=== PATIENT | male | born 1970 | race Caucasian/White ===

== ENCOUNTER → 2020-07-30 02:42 | Outpatient (CLI) | payer BC, SELFPAY ==
[2020-07-30 23:31] LABS: SARS-CoV-2 RNA PCR Negative
== END ==
PROVIDERS: PCP Internal Medicine; Visit Provider Internal Medicine Gastroenterology
DX: Z01.812 Encounter for preprocedural laboratory examination (principal); Z20.822 Contact with and (suspected) exposure to COVID-19
CPT/HCPCS: C9803; U0003; U0005

== ENCOUNTER 2020-08-01 12:18 | Outpatient (CLI) | payer BC, SELFPAY ==
--- NOTE | ~2020-08-01 | US_ITS ---
US abdomen complete EXAMINATION: US Abdomen Complete INDICATION: Hepatomegaly PROCEDURE: Realtime High Resolution abdomen ultrasound. COMPARISON: 11/08/2017 FINDINGS: Gallbladder within normal limits. No gallstones, pericholecystic fluid, gallbladder wall t hickening or biliary dilatation. Common bile duct measures 3.6 mm. Liver echotexture is increased, consistent with fatty infiltration. There is hepatomegaly. Pancreas within normal limits. Pancreatic tail is obscured by bowel gas. Spleen is unremarkeable. Renal echo texture is within normal limits bilaterally without hydronephrosis, contour deforming mass or renal s tone. Right kidney measures 9.8 cm. Left kidney measures 11.8 cm. Visualized aspects of the aorta and IVC are within normal limits. Portal vein is patent. No sonograph ic Diaz's sign indicated by the technologist. IMPRESSION: 1: Hepatomegaly with fatty infiltration of the liver. Reviewed, dictated and finalized at location B.
== END 2020-08-01 12:19 | disposition home or self-care (01) ==
LOC: ANHIMG 12:19
PROVIDERS: PCP Internal Medicine; Visit Provider Internal Medicine Gastroenterology
DX: R16.0 Hepatomegaly, not elsewhere classified (principal); R10.13 Epigastric pain
CPT/HCPCS: 76700

== ENCOUNTER 2020-08-02 01:09 | Day surgery (SDC) | payer BC, SELFPAY ==
[2020-07-24 16:05] VITALS: BMI 36.0
[2020-08-02 08:21] VITALS: BP 131/95; PULSE 120; RESP 18; TEMP 36.6; O2SAT 100; BMI 35.4
--- NOTE | 2020-08-02 09:09 | P.PNAN_ITS ---
Anes - Initial Pre Proc Eval Procedure: Operation Date: 08/02/20 09:30 Proposed Procedures p Esophagogastroduodenoscopy - Dagoberto Andres MD Date/Time: 08/02/20 09:09 Surgeon: Dagoberto Andres MD Pre Op Diagnosis: taveras's esophagus Patient Data Age: 49 Gender: M Height: 6 ft 1 in Weight: 122 kg Last Vital Signs Temp 97.8 F 08/02/20 08:21 Pulse 120 H 08/02/20 08:21 Resp 18 08/02/20 08:21 BP 131/95 H 08/02/20 08:21 Pulse Ox 100 08/02/20 08:21 Allergies Allergy/AdvReac Type Severity Reaction Status Date / Time No Known Allergies Allergy Verified 08/02/20 08:20 Home Medications Medication Instructions Recorded Confirmed Type omeprazole 40 mg capsule,delayed 40 mg PO DAILY 07/16/20 07/24/20 History release rizatriptan 10 mg tablet 10 mg PO ONCE 07/16/20 08/02/20 History calcium citrate-vitamin D3 1 tablet PO DAILY 07/24/20 07/24/20 History hbbxbcjg-sxo-xruxm-vit K-lycop 1 tablet PO DAILY 07/24/20 07/24/20 History [Men's Multivitamin] Patient hx anesthesia problems: none Family hx anesthesia problems: none [facility] Past Medical History Medical History (Updated 08/02/20 @ 09:10 by Kerwin Burden MD) Arthritis Migraine Social History Social History Years smoked: 20 Smoking status: Current every day smoker Alcohol use details: socially Living arrangements: with family Spiritual care concerns: No Anes - Eval Final PreProcedure Day of Procedure 08/02/20 09:09 Patient weight: obese Heart: regular rate and rhythm Lungs: clear to auscultation Airway: Mallampati scale class II Neurological: alert and oriented Last oral intake: >/= 8 hours ASA classification: III Emergent: no Anesthetic plan: proceed Anesthesia type and monitoring: general GIVS and standard monitoring Informed Consent: The patient's anesthetic plan and its attendant risks and benefits were discussed with the patient/family/POA. Questions were solicited and answers provided to the satisfaction of the patient/family/POA.
--- NOTE | 2020-08-02 09:09 | PM.HPGS ---
History of Present Illness History of Present Illness Consent: Risks, benefits, and alternatives have been discussed and questions answered. Patient agrees to proceed with procedure. Chief complaint: taveras's esophagus Narrative: Serafin Jacobsen II is a 49 year old male with a history of Taveras's esophagus. Review of Systems Review of Systems: All systems reviewed & are unremarkable except as noted in HPI and below PMFSH Social History Social History Years smoked: 20 Smoking status: Current every day smoker Alcohol use details: socially Living arrangements: with family Spiritual care concerns: No Meds Home Medications and Allergies Home Medications Medication Instructions Recorded Confirmed Type omeprazole 40 mg capsule,delayed 40 mg PO DAILY 07/16/20 07/24/20 History release rizatriptan 10 mg tablet 10 mg PO ONCE 07/16/20 08/02/20 History calcium citrate-vitamin D3 1 tablet PO DAILY 07/24/20 07/24/20 History buwezbgb-opi-eguns-vit K-lycop 1 tablet PO DAILY 07/24/20 07/24/20 History [Men's Multivitamin] Allergies Allergy/AdvReac Type Severity Reaction Status Date / Time No Known Allergies Allergy Verified 08/02/20 08:20 Vital Signs Vital Signs - 24 hr 08/02/20 08:21 Temperature 36.6 C Pulse Rate 120 H Respiratory Rate 18 Blood Pressure 131/95 H Pulse Oximetry 100 Exam Const: General: alert Orientation/consciousness: patient oriented x3 Resp: Auscultation: clear to auscultation bilaterally Cardio: Rhythm: regular rhythm GI: GI Palp: Yes Soft to palpation and No Tenderness to palpation present (GI) Neuro: General: patient oriented x3 Assessment and Plan Assessment and plan (1) Taveras's esophagus: Code(s): K22.70 - Taveras's esophagus without dysplasia Status: Acute Assessment and Plan: EGD with possible biopsy or dilatation or cautery.
[2020-08-02] MEDS: LACTATED RINGERS 1,000 ML 150 ML IV CONT (09:21)
[2020-08-02 09:34] VITALS: BP 117/81; PULSE 98; RESP 27; O2SAT 98
[2020-08-02 09:44] VITALS: BP 118/80; PULSE 100; RESP 26; O2SAT 99
[2020-08-02 09:54] VITALS: BP 120/82; PULSE 95; RESP 25; O2SAT 100
== END 2020-08-02 10:08 | disposition home or self-care (01) ==
PROVIDERS: PCP Internal Medicine; Visit Provider Internal Medicine Gastroenterology
PROC: 0DJ08ZZ Inspection of Upper Intestinal Tract, Via Natural or Artificial Opening Endoscopic (ICD-10-PCS; CPT 43235; principal; 2020-08-02 09:30)
DX: Z09 Encounter for follow-up examination after completed treatment for conditions other than malignant neoplasm (principal); K22.70 Barrett's esophagus without dysplasia; F17.210 Nicotine dependence, cigarettes, uncomplicated; E66.9 Obesity, unspecified; Z68.35 Body mass index [BMI] 35.0-35.9, adult
CPT/HCPCS: 43239; 88305; J2704; J7120

== ENCOUNTER → 2022-11-16 09:14 | Outpatient (CLI) | payer BC, SELFPAY ==
--- NOTE | ~2022-11-16 | US_ITS ---
US right upper quadrant INDICATION: Alcoholic cirrhosis. Diabetes. Hypertension. PROCEDURE: Realtime right upper abdominal ultrasound. COMPARISON: No prior studies for comparison. FINDINGS: The pancreas is normal without focal mass or pancreatic ductal dilation. Liver echotexture is increased, consistent with fatty infiltration. There is hepatomegaly. There is normal directiona l flow in the portal vein. The gallbladder is normal without stones, gallbladder wall thickening or pericholecystic fluid. Comm on bile duct measures 4 mm. No sonographic Diaz's sign. IMPRESSION: 1: Hepatomegaly with fatty infiltration of the liver. Reviewed, dictated and finalized at location B.
== END ==
PROVIDERS: PCP Internal Medicine; Visit Provider Internal Medicine
DX: R73.03 Prediabetes (principal); I10 Essential (primary) hypertension; K70.30 Alcoholic cirrhosis of liver without ascites
CPT/HCPCS: 76705

== ENCOUNTER → 2023-04-19 09:37 | Outpatient (CLI) | payer BC, SELFPAY ==
--- NOTE | ~2023-04-19 | CT_ITS ---
CT Scan of the Chest without Contrast: Clinical Indication: Lung cancer screening, tobacco dependence Technique: Contiguous sections were acquired throughout the chest without intravenous contrast. Dose reduction technique was used on this scan by utilizing automated exposure control and iterative recon struction technique. The dose-length product (DLP) was 292.84 mGy-cm. Findings: There is no evidence of any significant mediastinal, hilar or axillary lymphadenopathy. The mediastin al soft tissues appear normal. There is no evidence of pleural or pericardial effusion. The lungs are clear. No pulmonary nodules or infiltrates are noted. Images through the upper abdomen reveal no abnormalities. Impression: Lung RADS 1: Negative. 12 month follow-up screening CT advised. Reviewed, dictated and finalized at location . ITAL RECEPTIONIST Impression: Lung RADS 1: Negative. 12 month follow-up screening CT advised.
== END ==
DX: Z12.2 Encounter for screening for malignant neoplasm of respiratory organs (principal); Z87.891 Personal history of nicotine dependence
CPT/HCPCS: 71271

== ENCOUNTER 2024-03-13 08:51 | Outpatient (CLI) | payer BC, SELFPAY ==
--- NOTE | ~2024-03-13 | US_ITS ---
EXAMINATION: US right upper quadrant DATE: 03/13/2024 09:41 INDICATION: Alcoholic cirrhosis of liver. TECHNIQUE: Multiple grayscale and Doppler ultrasound images of the abdomen were obtained. COMPARISON: Ultrasound 11/16/2022, chest CT 04/19/2023 FINDINGS: The visualized portions of the head and body of the pancreas are normal. The liver is raman l without focal lesion. No liver surface nodularity. There is normal flow in main portal vein. The ga llbladder is normal in size. No gallstones or gallbladder wall thickening. There is no sonographic Mu rphy's sign. The common duct is normal and measures 3 mm. Right kidney is normal. IMPRESSION: 1. Normal liver. Reviewed, dictated and finalized at location B. CING SUPERVISOR IMPRESSION: 1. Normal liver.
--- OUTSIDE RECORDS SUMMARY | 2024-03-16 12:01 | XMS_ITS | Clinical Summary ---
Author Organization [facility] Address [address] [place] [address] Care Team Providers Care Terrapin Fisher Name Role Phone Kevon Del Rio MD Primary Care Provider [phone] Source Comments [facility],non-owned Affiliates and Associated Physician Practices is amultiple site organization consisting of ambulatory clinics and hospital sitesin [place], [place], [place] and [place]. This disclosure is being madepursuant to the Care Everywhere program and may not contain all information available regarding this patient. Last updated 17.[facility] [employer] Allergies No known active allergies Medications * Be aware that medications may not be up to date on this document. Alwaysverify current medications with the patient. Medication Sig Dispensed Refills Start Date End Date Status rizatriptan (MAXALT) 10 MG tablet Take 10 mg by mouth daily as needed - may repeat one time for Migraine N Active omeprazole (PRILOSEC) 40 MG capsule Take 40 mg by mouth daily before breakfast Active VITAMIN D PO Take by mouth once daily Active calcium 500 mg TABS tablet Take 500 mg by mouth once daily Active cyclobenzaprine (FLEXERIL) 10 MG tablet TAKE 1 TABLET BY MOUTH AT BEDTIME NEEDED FOR SPASM 01/14/2020 Active Active Problems No known active problems Family History Medical History Relation Name Comments Cancer - Lung Paternal Grandmother smoker Relation Name Status Comments Paternal Grandmother Social History Tobacco Use Types Packs/Day Years Used Date Smoking Tobacco: Every Day Cigarettes Smokeless Tobacco: Never Tobacco Cessation:Counseling Given: No Alcohol Use Standard Drinks/Week Comments Yes 0 (1 standard drink = 0.6 oz pur e alcohol) rare Sex and Gender Information Value Date Recorded Sex Assigned at Not on file Gender Identity Not on file Sexual Orientation Not on file Last Filed Vital Signs Vital Sign Reading Time Taken Comments Blood Pressure 114/78 02/13/2020 11:37 AM CONSULTING GROUP ANALYST Pulse 72 02/13/2020 11:37 AM CONSULTING GROUP ANALYST Temperature - - Respiratory Rate 12 02/13/2020 11:37 AM CONSULTING GROUP ANALYST Oxygen Saturation - - Inhaled Oxygen Concentration - - Weight 121.1 kg (267 lb) 03/07/2020 12:24 PM CONSULTING GROUP ANALYST Height 181.6 cm (5' 11.5 ) 03/07/2020 12:[address] Body Mass Index 36.72 03/07/2020 12:24 PM CONSULTING GROUP ANALYST Plan of Treatment Health Maintenance Due Date Last Done Comments COLOGUARD (AGES 45-75) - COL ON CA SCREENING 1972 COLON MONITORING 1972 COLONOSCOPY - COLON CA SCREENING 1972 CT COLONOGRAPHY - COLON CA SCREENING 1972 Colorectal Cancer Screening 1972 FIT - COLON CA SCREENING 1972 FLEX SIG - COLON CA SCREENING 1972 LIPID TESTING 1972 HIV SCREENING 10/28/1987 HEPATITIS C SCREENING 10/23/1990 DTAP/TDAP/TD VACCINES (1 - Tdap) 10/28/1991 HEPATITIS B VACCINE (1 of 3 - 19+ 3-dose series) 10/28/1991 PNEUMOCOCCAL VACCINE 50+ (1 of 2 - PCV) 10/28/1991 PNEUMOCOCCAL VACCINE (1 of 2 - PCV) 10/28/1991 SCREENING FOR DIABETES 02/13/2020 ZOSTER VACCINE (1 of 2) 2022 COVID-19 VACCINE (1 - 2023-2 5 season) 2023 INFLUENZA VACCINE (#1) 2023 DEPRESSION SCREENING 02/23/2024 HIB VACCINE Aged Out No longer eligi ble based on patient's age to complete this topic HPV VACCINE Aged Out No longer eligi ble based on patient's age to complete this topic MENINGOCOCCAL (Group B) VACCINE Aged Out No longer eligible based on patient's age to complete this topic MENINGOCOCCAL VACCINE Aged Out No herminia cassie eligible based on patient's age to complete this topic Care Teams Terrapin Fisher Relationship Specialty Start Date End Date Kevon Del Rio MD PCP - General 08/28/10
--- OUTSIDE RECORDS SUMMARY | 2024-03-16 12:01 | XMS_ITS | Referral Summary ---
Author Organization [facility] Address [address] [place] [address] Care Team Providers Care Shingle Sawyer Name Role Phone Kevon Del Rio MD Primary Care Provider [phone] Source Comments [facility],non-owned Affiliates and Associated Physician Practices is amultiple site organization consisting of ambulatory clinics and hospital sitesin [place], [place], [place] and [place]. This disclosure is being madepursuant to the Care Everywhere program and may not contain all information available regarding this patient. Last updated 17.[facility] [employer] Allergies No known active allergies Medications * [...] Active Active Problems No known active problems Social History Tobacco Use Types Packs/Day Years [...] Comments Blood Pressure 114/78 02/13/2020 11:37 AM COMMUNITY FUNDRAISER Pulse 72 02/13/2020 11:37 AM COMMUNITY FUNDRAISER Temperature - - Respiratory Rate 12 02/13/2020 11:37 AM COMMUNITY FUNDRAISER Oxygen Saturation - - Inhaled Oxygen Concentration - - Weight 121.1 kg (267 lb) 03/07/2020 12:24 PM COMMUNITY FUNDRAISER Height 181.6 cm (5' 11.5 ) 03/07/2020 12:[address] Body Mass Index 36.72 03/07/2020 12:24 PM COMMUNITY FUNDRAISER Plan of Treatment Not on file Care Teams Shingle Sawyer Relationship Specialty Start Date End Date Kevon Del Rio MD PCP - General 08/28/10
--- OUTSIDE RECORDS SUMMARY | 2024-03-16 12:02 | XMS_ITS | Referral Summary ---
Author Organization [facility] [place] [place] [address] Address [address] [place] [address] Care Team Providers Care Mat Linker Name Role Phone Kevon Del Rio MD Primary Care Provider [phone] Encounters Date Type Department Care Team Description 01/31/2024 11:00 AM PRODUCTION LINE SOLDERER Office Visit [facility] [address] [place] [address] [address] [place] [address] Kevon Del Rio MD Prediabetes (Primary Dx); Alcoholic cirrhosis of liver without ascites (CMS/HCC) (HCC); Essential hypertension; Tobacco dependence from Last 3 Months Allergies No known active allergies Medications cholecalcifero l (VITAMIN D-3) 5,000 unit tablet Take by mouth daily Active coenzyme Q10 100 mg capsule Take 1 capsule (100 mg total) by mouth daily Active SUMAtriptan (IMITREX) 100 mg tabletIndicati ons:Migraine Take 1 tablet (100 mg total) by mouth once as needed for migraine May repeat after 2 hours. 27 tablet 4 03/22/19 24 025 Active omeprazole (PriLOSEC) 40 mg capsule Take 1 capsule (40 mg total) by mouth daily 90 capsule 3 08/02/19 24 Active triamcinolone (KENALOG) 0.5 % cream APPLY CREAM TOPICALLY TO AFFECTED AREA ON FOREHEAD AND ARMS 30 g 09/02/19 24 Active olmesartan-hyd rochlorothiazi de (BENICAR HCT) 20-12.5 mg per tablet Take 1 tablet by mouth once daily 90 tablet 3 09/22/19 24 Active multivitamin tabletIndicati ons:Vitamin Deficiency Prevention Take 1 tablet by mouth daily 90 tablet 1 01/31/20 24 Active cyclobenzaprin e (FLEXERIL) 10 mg tablet TAKE 1 TABLET BY MOUTH TWICE DAILY NEEDED FOR MUSCLE SPASM 30 tablet 02/23/19 25 Active cyclobenzaprin e (FLEXERIL) 10 mg tablet TAKE 1 TABLET BY MOUTH TWICE DAILY NEEDED FOR MUSCLE SPASM 30 tablet 02/01/20 24 025 Discontinued Active Problems Problem Noted Date Diagnosed Date Gastroesophageal reflux disease without esophagi tis 08/02/2023 Assessment & Plan (08/02/2023 11:12 AM CDT): Continue omeprazole 40mg daily, failed dose reduction in the past Migraine 03/22/2023 Assessment & Plan (08/02/2023 11:12 AM CDT): Imitrex 100mg PRN Assessment & Plan (03/22/2023 11:12 AM PRODUCTION LINE SOLDERER): No longer achieving full abortive effect from Maxalt, will trial Imitrex Tobacco dependence 03/22/2023 Assessment & Plan (01/31/2024 11:41 AM PRODUCTION LINE SOLDERER): Will do annual scanning. Advised to quit smoking Assessment & Plan (08/02/2023 11:12 AM CDT): LDCT UTD Assessment & Plan (03/22/2023 11:12 AM PRODUCTION LINE SOLDERER): LDCT at [place] Essential hypertension 12/21/2022 Assessment & Plan (01/31/2024 11:41 AM PRODUCTION LINE SOLDERER): Check BP in the future however doing well Assessment & Plan (08/02/2023 11:18 AM CDT): Continue olmesartan/HCTZ 20/12.5mg daily Labs today Continue home BP monitor, goal <130/90 Assessment & Plan (03/22/2023 11:11 AM PRODUCTION LINE SOLDERER): Will add 12.5mg HCTZ to olmesartan daily Repeat BMP on return visit Alcoholic cirrhosis of liver without ascites (CM S/HCC) 08/14/2021 Assessment & Plan (01/31/2024 11:41 AM PRODUCTION LINE SOLDERER): Check labs and ultrasound Assessment & Plan (08/14/2021 2:20 PM CDT): Check labs, including protime and alpha fetoprotein Immunizations Name Administration Dates Next Due Flucelvax Influenza Quad 10/26/2018 Hep A / Hep B 07/05/2018,01/26/2018,12/26/2017 Influenza, Quadrivalent, Spl it, Preservative Free, Intramuscular 12/25/2014 Social History Tobacco Use Types Packs/Day Years Used Date Smoking Tobacco: Every Day Cigarettes 0.5 30 Smokeless Tobacco: Never Tobacco Cessation:Ready to Q uit: Not Asked; Counseling Given: Not Answered Sex and Gender Information Value Date Recorded Sex Assigned at Not on file Legal Sex Male 7:54 AM PRODUCTION LINE SOLDERER Gender Identity Not on file Sexual Orientation Not on file Last Filed Vital Signs Vital Sign Reading Time Taken Comments Blood Pressure 146/102 01/31/2024 11:13 AM PRODUCTION LINE SOLDERER Pulse 80 01/31/2024 11:13 AM PRODUCTION LINE SOLDERER Temperature - - Respiratory Rate - - Oxygen Saturation 96% 08/02/2023 10:51 AM CDT Inhaled Oxygen Concentration - - Weight 114.8 kg (253 lb) 01/31/2024 11:13 AM PRODUCTION LINE SOLDERER Height 185.4 cm (6' 1 ) 01/31/2024 11:13 AM PRODUCTION LINE SOLDERER Body Mass Index 33.38 01/31/2024 11:13 AM PRODUCTION LINE SOLDERER Plan of Treatment Not on file Procedures Procedure Name Priority Date/Time Associated Diagnosis Comments POCT HEMOGLOBIN A1C Routine 01/31/2024 1 1:15 AM PRODUCTION LINE SOLDERER Prediabetes PSA SCREEN Routine 08/02/2023 11:28 AM CDT Prostate cancer screening from Last 3 Months or Most Recently Relevant to Health Maintenance Results * POCT hemoglobin A1c (01/31/2024 11:15 AM PRODUCTION LINE SOLDERER) Hemoglobin A1C, POC 5.6 4.0 - 5.6 % Blood 01/31/2024 11:1 5 AM PRODUCTION LINE SOLDERER Kevon Del Rio MD POINT OF CARE TEST ORDERABLES Final Result * PSA screen (08/02/2023 11:28 AM CDT) PSA 1.3 0.0 - 4.0 ng/mL [facility] - 01 Comment: Savage ECLIA methodology. According to the [place] [employer], Serum PSA should decrease and remain at undetectable levels after radical prostatectomy. The AUA defines biochemical recurrence as an initial PSA value 0.2 ng/mL or greater followed by a subsequent confirmatory PSA value 0.2 ng/mL or greater. Values obtained with different assay methods or kits cannot be used interchangeably. Results cannot be interpreted as absolute evidence of the presence or absence of malignant disease. Blood 08/02/2023 11:2 8 AM CDT 08/02/2023 Narrative [facility] - 08/03/2023 2:11 PM CDT Performed at: ??01 - [facility] ??[id number] Radio Repair Teacher: Mariano Sinclair PhD, Phone: ??[phone] Iris Post NP LAB BLOOD ORDERABLES Fin al Result [facility] - 01 from Last 3 Months or Most Recently Relevant to Health Maintenance Insurance [facility] [place] [employer] [facility] [address] [place] [address] Care Teams Mat Linker Relationship Specialty Start Date End Date Kevon Del Rio MD [address] [place] [address] PCP - General Internal Medicine 11/28/18
--- OUTSIDE RECORDS SUMMARY | 2024-03-16 12:02 | XMS_ITS | CONTINUITY OF CARE DOCUMENT ---
Author Name lucia indraderrick Address Unknown Organization [place] Office Address [address] [place] [address] [address] [place] [address] Phone [phone] Care Team Providers Care Heating Element Winder Name Role Phone Lorraine RODRIGUEZ, Zoltan Unavailable FABIOLA CASTELAN MD Unavailable FABIOLA CASTELAN MD Unavailable [phone] PROBLEMS Condition Status Date Provider Notes Chest pain active Blanca [place] VITAL SIGNS Date Observation Value Provider blood pressure, diastolic 66 mm[Hg] Da amarilys Vikash blood pressure, systolic 122 mm[Hg] Dac ia Vikash SOCIAL HISTORY Date Observation Value Provider smoking status Current every day smoker D acia Vikash FUNCTIONAL STATUS Date Observation Value Provider periodic limb movement index absent (0) Gab Santillan MD INSURANCE PROVIDERS Payer name Policy type / Coverage type [employer] party ID [facility] [id number] HISTORY OF PROCEDURES Procedure Date Procedure Name Provider Procedure Notes S tatus Stress EKG Gab Santillan MD compl eted
--- OUTSIDE RECORDS SUMMARY | 2024-03-16 12:02 | XMS_ITS | Clinical Summary ---
Author Organization [facility] [address] Address [address] [place] [address] Care Team Providers Care Salesperson Automobiles Name Role Phone Kevon Del Rio MD Primary Care Provider [phone] Allergies No known active allergies Medications cholecalcifero [...] PRN Assessment & Plan (03/22/2023 11:12 AM ACCURACY EXPERT): No longer achieving full abortive effect from Maxalt, will trial Imitrex Tobacco dependence 03/22/2023 Assessment & Plan (01/31/2024 11:41 AM ACCURACY EXPERT): Will do annual scanning. Advised to quit smoking Assessment & Plan (08/02/2023 11:12 AM CDT): LDCT UTD Assessment & Plan (03/22/2023 11:12 AM ACCURACY EXPERT): LDCT at [facility] Essential hypertension 12/21/2022 Assessment & Plan (01/31/2024 11:41 AM ACCURACY EXPERT): Check BP in the future however doing well Assessment & Plan (08/02/2023 11:18 AM CDT): Continue olmesartan/HCTZ 20/12.5mg daily Labs today Continue home BP monitor, goal <130/90 Assessment & Plan (03/22/2023 11:11 AM ACCURACY EXPERT): Will add 12.5mg HCTZ to olmesartan daily Repeat BMP on return visit Alcoholic cirrhosis of liver without ascites (CM S/HCC) 08/14/2021 Assessment & Plan (01/31/2024 11:41 AM ACCURACY EXPERT): Check labs and ultrasound Assessment & Plan (08/14/2021 2:20 PM CDT): Check labs, including protime and alpha fetoprotein Encounters Date Type Department Care Team Description 01/31/2024 11:00 AM ACCURACY EXPERT Office Visit [facility] [address] [facility] [address] [place] [address] Kevon Del Rio MD Prediabetes (Primary Dx); Alcoholic cirrhosis of liver without ascites (CMS/HCC) (HCC); Essential hypertension; Tobacco dependence from Last 3 Months Immunizations Name Administration Dates Next Due Flucelvax Influenza Quad 10/26/2018 Hep A / Hep B 07/05/2018,01/26/2018,12/26/2017 Influenza, Quadrivalent, Spl it, Preservative Free, Intramuscular 12/25/2014 Surgical History Surgery Date Site/Laterality Comments SHOULDER SURGERY BACK SURGERY Medical History Medical History Date Comments Headache Family History Medical History Relation Name Comments Heart disease Father Hyperlipidemia Father Hypertension Father Relation Name Status Comments Father Social History Tobacco Use Types Packs/Day Years Used Date Smoking Tobacco: Every Day Cigarettes 0.5 30 Smokeless Tobacco: Never Tobacco Cessation:Ready to Q uit: Not Asked; Counseling Given: Not Answered Sex and Gender Information Value Date Recorded Sex Assigned at Not on file Legal Sex Male 7:54 AM ACCURACY EXPERT Gender Identity Not on file Sexual Orientation Not on file Obstetrics History Last Filed Vital Signs Vital Sign Reading Time Taken Comments Blood Pressure 146/102 01/31/2024 11:13 AM ACCURACY EXPERT Pulse 80 01/31/2024 11:13 AM ACCURACY EXPERT Temperature - - Respiratory Rate - - Oxygen Saturation 96% 08/02/2023 10:51 AM CDT Inhaled Oxygen Concentration - - Weight 114.8 kg (253 lb) 01/31/2024 11:13 AM ACCURACY EXPERT Height 185.4 cm (6' 1 ) 01/31/2024 11:13 AM ACCURACY EXPERT Body Mass Index 33.38 01/31/2024 11:13 AM ACCURACY EXPERT Plan of Treatment Health Maintenance Due Date Last Done Comments Colon Cancer Screening-Colonoscopy 1972 Depression Screening 1972 Hepatitis C Screening 1972 DTaP/Tdap/Td Vaccine (1 - Tdap) 10/28/1983 Influenza Vaccine (#1) 2023 10/26/2018, 2014 Pneumococcal vaccine <65 (1 of 2 - PCV) 01/15/2025 Postponed from 1978 (Patient declined, but will receive in the future) Regular Well Visit/Exam 18-64 01/30/2025 01/31/2024, 08/06/2020, 08/06/2020 Zoster Vaccine (1 of 2) 01/30/2025 Post poned from 2022 (Patient declined, but will receive in the future) Prostate Cancer Screening-PSA 08/01/2025 08/02/2023, 05/04/2022, 08/06/2020, Additional history exists Procedures Procedure Name Priority Date/Time Associated Diagnosis Comments POCT HEMOGLOBIN A1C Routine 01/31/2024 1 1:15 AM ACCURACY EXPERT Prediabetes PSA SCREEN Routine 08/02/2023 11:28 AM CDT Prostate cancer screening from Last 3 Months or Most Recently Relevant to Health Maintenance Results * POCT hemoglobin A1c (01/31/2024 11:15 AM ACCURACY EXPERT) Hemoglobin A1C, POC 5.6 4.0 - 5.6 % Blood 01/31/2024 11:1 5 AM ACCURACY EXPERT Kevon Del Rio MD POINT OF CARE TEST ORDERABLES Final Result * PSA screen (08/02/2023 11:28 AM CDT) PSA 1.3 0.0 - 4.0 ng/mL [facility] - 01 Comment: Savage ECLIA methodology. According to the [place] [employer], Serum PSA should decrease and [...] 2:11 PM CDT Performed at: ??01 - [facility] [address] ??[id number] Web Site Specialist: Mariano Sinclair PhD, Phone: ??[phone] us Iris Post MINER OPERATOR LAB BLOOD ORDERABLES Fin al Result [facility] - 01 from Last 3 Months or Most Recently Relevant to Health Maintenance Insurance [employer] [place] [employer] [facility] [address] [place] [address] Care Teams Salesperson Automobiles Relationship Specialty Start Date End Date Kevon Del Rio MD [address] [facility] [address] [place] [address] PCP - General Internal Medicine 11/28/18
--- OUTSIDE RECORDS SUMMARY | 2024-03-16 12:02 | XMS_ITS | Continuity of Care Document ---
Author Organization [facility] Address [address] [place] [address] Phone Care Team Providers Care Solid Waste Analyst Name Role Phone Dylon Sinclair MD Unavailable Unavailable Allergies, Adverse Reactions, Alerts Substance Reaction Status Criticality No Known Allergies Active No Inform ation Medications Medication Instructions Dosage Effective Dates (start - stop) Status Comments Percocet 5 mg-325 mg tablet take 1-2 tablets by oral route every 6 hours as needed for pain - Active MELOXICAM 15MG TAB TAKE 1 TABLET BY MOUTH ONCE DAILY WITH FOOD - Active RELPAX (unknown strength) Not Available - Active XANAX (unknown strength) Not Available - Active OMEPRAZOLE (unknown strength) Not Available - Active Percocet 7.5 mg-325 mg tablet take 1-2 tablets by oral route every 6 hours as needed for pain - No Longer Active Procedures Procedure Date POSTOP FOLLOW-UP VISIT RADEX KIMMY COMPL MINIMUM 2 VIEWS 019 RADEX KIMMY COMPL MINIMUM 2 VIEWS 019 POSTOP FOLLOW-UP VISIT SHOULDER ARTHROSCOPY DX OFFICE/OUTPATIENT VISIT EST OFFICE/OUTPATIENT VISIT EST OFFICE/OUTPATIENT VISIT EST X-RAY EXAM HIP UNI W PELVIS 2-3 VIEWS Ap OFFICE/OUTPATIENT VISIT EST X-RAY EXAM HIP UNI W PELVIS 2-3 VIEWS Fe OFFICE/OUTPATIENT VISIT EST X-RAY EXAM HIP UNI 2-3 VIEWS POSTOP FOLLOW-UP VISIT RADEX HIP UNI COMPL MINIMUM 2 VIEWS POSTOP FOLLOW-UP VISIT RADEX HIP UNI COMPL MINIMUM 2 VIEWS POSTOP FOLLOW-UP VISIT RADEX PELVIS 1/2 VIEWS RADEX HIP UNI COMPL MINIMUM 2 VIEWS OFFICE/OUTPATIENT VISIT EST OFFICE/OUTPATIENT VISIT EST OFFICE CONSULTATION OFFICE/OUTPATIENT VISIT EST POSTOP FOLLOW-UP VISIT POSTOP FOLLOW-UP VISIT POSTOP FOLLOW-UP VISIT OFFICE/OUTPATIENT VISIT EST OFFICE/OUTPATIENT VISIT NEW Advance Directives Directive Yes / No Effective Date File Name No Information Encounters Encounter Description Practice Location Reason(s) For Visit Diagnoses Date Provider Providers Copied on Encounter [facility], [address], [address], tel:[phone] [facility] Status post arthroscopy of left shoulderAdhesive capsulitis of left shoulder May-03 02- 9 Dusek Dylon. [address] [place], [id number] . tel: [phone] [facility], [address], [address], [place] tel:[phone] [facility] Chronic left shoulder painAdhesive capsulitis of left shoulderStatus post arthroscopy of left shoulder Apr- 5-201 9 Dusek Dylon. [address] [place], [address] . tel: [phone] [facility], [address], [address], [place] tel:[phone] [facility] Adhesive capsulitis of left shoulder Apr-0 8-201 9 Dusek Dylon. [address] [place], [place], [address] . tel: [phone] [facility], [address], [address], [place] tel:[phone] [facility] Chronic left shoulder pain Mar-0 6-201 9 Dusek Dylon. [address] [facility], [place], [place], [address] . tel: [phone] [facility], [address] [address], [place], [address], [place] tel:[phone] [facility] Adhesive capsulitis of left shoulder Mar-0 1-201 9 Dusek Dylon. [address] [facility], [place], [place], [address] . tel: [phone] OFFICE/OUTPAT IENT VISIT EST [facility], [address] [address], [place], [address], [place] tel:[phone] [facility] Chronic left shoulder pain Feb-0 1-201 9 Dusek Dylon. [address] [facility], [place], [place], [address] . tel: [phone] [facility], [address], [address], [place] tel:[phone] [facility] No Information Jan- 4-201 8 Dusek Dylon. [address] [facility], [place], [place], [id number] . tel: [phone] OFFICE/OUTPAT IENT VISIT EST [facility], [address] [address], [place], [address], [place] tel:[phone] [facility] Bursitis of left shoulder Sep-0 7-201 8 Dusek Dylon. [address] [facility], [place], [place], [address] . tel: [phone] Referring Provider: Kevon Sheppard, [facility], [place], [address] . tel:[phone] OFFICE/OUTPAT IENT VISIT EST [facility], [address], [address], [place] tel:[phone] [facility] Bursitis of left shoulderBody mass index (BMI) 30.0-30.9, adult Aug- 4-201 8 Dusek Dylon. [address] , [place], [place], [address] . tel: [phone] OFFICE/OUTPAT IENT VISIT EST [facility], [address], [address], [place] tel:[phone] [facility] Avascular necrosis of bone of right hip May- 2-201 6 Dusek Dylon. [address] , [place], [place], [address] . tel: [phone] Attending Physician: Kevon Del Rio, [address] [place], [address] . tel:[phone] OFFICE/OUTPAT IENT VISIT EST [facility], [address], [address], [place] tel:[phone] [facility] Avascular necrosis of bone of right hipGreater trochanteric bursitis, right Feb-2 6-201 6 Dusek Dylon. [address] [facility] [place], [place], [address] . tel: [phone] [facility], [address] [address], [place], [address], [place] tel:[phone] [facility] Avascular necrosis of bone of right hip Feb-0 2-201 6 Dusek Dylon. [address] [facility], [place], [place], [address] . tel: [phone] [facility], [address], [address], [place] tel:[phone] [facility] Avascular necrosis of bone of right hip 2-201 6 Dusek Dylon. [address] [facility], [place], [place], [address] . tel: [phone] Attending Physician: Kevon Del Rio, [address] [place], [address] . tel:[phone] [facility], [address], [address], [place] tel:[phone] [facility] Avascular necrosis of bone of right hip Dec- 8-201 5 Dusek Dylon. [address] , [place], [place], [address] . tel: [phone] [facility], [address], [address], [place] tel:[phone] [facility] Pain in right hipAvascular necrosis of bone of right hip Nov- 2-201 5 Dusek Dylon. [address] [facility], [place], [place], [address] . tel: [phone] [facility], [address], [address], [place] tel:[phone] [facility] post-op right (chief complaint) Avascular necrosis of bone of right hip Sep-1 7- 5 Dusek Dylon. [address] [facility], [place], [place], [address] . tel: [phone] OFFICE/OUTPAT IENT VISIT EST [facility], [address] [address], [place], [address], [place] tel:[phone] [facility] Pain in joint involving pelvic region and thighshoulder bursitiship avascular necrosis Sep-1 5-201 5 Dusek Dylon. [address] [facility], [place], [place], [address] . tel: [phone] OFFICE/OUTPAT IENT VISIT EST [facility], [address], [address], [place] tel:[phone] [facility] Right hip pain (chief complaint) Labral tear of hip, degenerativeStra in of right hip Sep-0 4-201 5 Sutton Andre. [address] [place], [place], [address] . tel: [phone] Attending Physician: Kevon Del Rio, [address] [place] [address], [address] . tel:[phone] OFFICE CONSULTATION [facility], [address] [address], [place], [address], [place] tel:[phone] [facility] LBP and right hip pain (chief complaint) Strain of right hipBursitis of right hipLumbar strain 2 5 Herman Powell. [address] [facility], [place], [place], [address] . tel: [phone] Attending Physician: Kevon Del Rio, [address] [place], [address] . tel:[phone] OFFICE/OUTPAT IENT VISIT EST [facility], [address], [address], [place] tel:[phone] [facility] shoulder bursitis 0- 5 Dusek Dylon. [address] [place], [place], [address] . tel: [phone] [facility], [address], [address], [place] tel:[phone] [facility] Follow Up of R shoulder (chief complaint) shoulder bursitis 0201 5 Dusek Dylon. [address] [place], [place], [address] . tel: [phone] [facility], [address], [address], [place] tel:[phone] [facility] Follow Up of R shoulder (chief complaint) shoulder bursitis 1-201 5 Dusek Dylon. [address] [place], [place], [address] . tel: [phone] [facility], [address], [address], [place] tel:[phone] [facility] shoulder bursitis 3-201 5 Dusek Dylon. [address] [place], [place], [address] . tel: [phone] OFFICE/OUTPAT IENT VISIT EST [facility], [address] [address], [place], [address], [place] tel:[phone] [facility] shoulder partial tear rotator cuffLumbar spondylosis May-2 201 5 Dusek Dylon. [address] , [place], [place], [address] . tel: [phone] OFFICE/OUTPAT IENT VISIT NEW [facility], [address] [facility] [address], [place], [address], tel:[phone] [facility] R shoulder pain (chief complaint) Lumbar spondylosisshoul josé miguel partial tear rotator cuff Apr-0 5 Dusek Dylon. [address] [facility], [place], [place], [address] . tel: [phone] Family History Family Member Type Diagnosis Age At Onset Problem (finding) Family history of hyper tension Mother Problem (finding) Alive and well Father Problem (finding) Alive and well Payers Payer name Insurance type Covered libertarian ID Lettyian alexsandrajanee(s) Blue Access PPO E2 OT [id number] Social History Type Description Quantity Date Captured Comments Alcohol Use Details Unknown Caffeine Use Details Unknown Tobacco Use Status Smoking Status No Information Sex Male Chief Complaint And Reason For Visit No Information Reason For Referral Reason For Referral No Information Plan Of Treatment Date Type Action Status Referral Ordered: RADEX KIMMY COMPL MINIMUM 2 VIEWS LT shoulder ordered Referral Ordered: X-RAY EXAM HIP UNI W PELVIS 2-3 VIEWS RT hip ordered Referral Ordered: X-RAY EXAM HIP UNI W PELVIS 2-3 VIEWS RT ordered Referral Ordered: X-RAY EXAM HIP UNI 2-3 VIEWS RT ordered Referral Ordered: RADEX HIP UNI COMPL MINIMUM 2 VIEWS RT hip ordered Referral Ordered: RADEX HIP UNI COMPL MINIMUM 2 VIEWS RT ordered Referral Ordered: MRI ANY JT LXTR C-MATRL RT hip ordered Referral Ordered: RADEX KIMMY 1 VIEW RT ordered Referral Ordered: RADEX SPI LUMBOSAC MINIMUM 4 VIEWS ordered Referral Ordered: MRI SPI CANAL&CNTS LMBR C-MATRL ordered Referral Ordered: RADEX KIMMY COMPL MINIMUM 2 VIEWS RT ordered Referral Ordered: US XTR NON-VASC COMPLETE RT shoulder ordered Referral Ordered: RADEX ACROMCLAV JTS BI +-W8ED DISTRCJ ordered Referral Ordered: RADEX PELVIS 1/2 VIEWS ordered History Of Present Illness Encounter Date Complaint History Of Prese nt Illness Right hip pain LBP and right hip pain Follow Up of R shoulder Follow Up of R shoulder R shoulder pain Functional Status Date Functional Assessmen t No Information Instructions Date Instruction Additional Infor chalino Discussed treatment options Rela mindi to Adhesive capsulitis of left shoulder Inform physician of any changes in symptoms or pain. Related to Status post arthroscopy of left shoulder Take medication as d irected, call for increased pain Related to Chronic left shoulder pain Inform physician of any changes in symptoms or pain. Related to Status post arthroscopy of left shoulder Discussed treatment options Rela mindi to Chronic left shoulder pain Take medication as d irected, call for increased pain Related to Chronic left shoulder pain Discussed treatment options Rela mindi to Chronic left shoulder pain Take medication as d irected, call for increased pain Related to Chronic left shoulder pain Take medication as directed. Rel ated to Bursitis of left shoulder Call for increase in pain Relate d to Bursitis of left shoulder Call for increase in pain Relate d to Bursitis of left shoulder Discussed treatment options Rela mindi to Bursitis of left shoulder Take medication as directed. Rel ated to Bursitis of left shoulder Weight monitoring Related to Bod y mass index (BMI) 30.0-30.9, adult Discussed treatment options Rela mindi to Greater trochanteric bursitis, right Discussed treatment options Rela mindi to Pain in joint involving pelvic region and thigh Take medication as directed. Rel ated to Bursitis of right hip Rest, ice and elevate. Related t o Bursitis of right hip Discussed treatment options Rela mindi to shoulder partial tear rotator cuff Discussed treatment options Rela mindi to shoulder partial tear rotator cuff Take medication as directed. Rel ated to shoulder partial tear rotator cuff Assessments Type Assessment Date assessment Status post arthroscopy of left shoulder assessment Adhesive capsulitis of left shou lder Patient Care Teams Name Effective Dates (start - stop) Status Members No Information
--- OUTSIDE RECORDS SUMMARY | 2024-03-16 12:02 | XMS_ITS | Patient Health Summary ---
Author Organization [facility] Address [address] [facility] [address] Care Team Providers Care Hydraulic Corrugating Machine Operator Name Role Phone Kevon Del Rio MD Primary Care Provider [phone] Note from [facility],non-owned Affiliates and Associated Physician Practices is amultiple site organization consisting of ambulatory clinics and hospital sitesin [place], [place], [place] and [place]. This disclosure is being madepursuant to the Care Everywhere program and may not contain all information available regarding this patient. Last updated 17.[facility] [employer] Allergies No known active allergies Medications * Be aware that medications may not be up to date on this document. Alwaysverify current medications with the patient. * rizatriptan (MAXALT) 10 MG tablet Take 10 mg by mouth daily as needed - may repeat one time for Migraine N * omeprazole (PRILOSEC) 40 MG capsule Take 40 mg by mouth daily before breakfast * VITAMIN D PO Take by mouth once daily * calcium 500 mg TABS tablet Take 500 mg by mouth once daily * cyclobenzaprine (FLEXERIL) 10 MG tablet(Started 01/14/2020) TAKE 1 TABLET BY MOUTH AT BEDTIME NEEDED FOR SPASM Active Problems No known active problems Social [...] Comments Blood Pressure 114/78 02/13/2020 11:37 AM SPECTROSCOPIST Pulse 72 02/13/2020 11:37 AM SPECTROSCOPIST Temperature - - Respiratory Rate 12 02/13/2020 11:37 AM SPECTROSCOPIST Oxygen Saturation - - Inhaled Oxygen Concentration - - Weight 121.1 kg (267 lb) 03/07/2020 12:24 PM SPECTROSCOPIST Height 181.6 cm (5' 11.5 ) 03/07/2020 12:[address] Body Mass Index 36.72 03/07/2020 12:24 PM SPECTROSCOPIST Care Teams Hydraulic Corrugating Machine Operator Relationship Specialty Start Date End Date Kevon Del Rio MD PCP - General 08/28/10
== END 2024-03-13 08:52 | disposition home or self-care (01) ==
PROVIDERS: Visit Provider Internal Medicine
DX: K70.30 Alcoholic cirrhosis of liver without ascites (principal); I10 Essential (primary) hypertension; F17.200 Nicotine dependence, unspecified, uncomplicated
CPT/HCPCS: 76705